=== PATIENT | male | born 1960 | race Caucasian/White ===

== ENCOUNTER 2017-06-04 18:37 | Inpatient (IN) | payer OTHER ==
[~2017-06-04] VITALS: Ht 180.3 cm; Wt 90.9 kg
[2017-06-04 18:45] VITALS: BP 151/88; PULSE 79; RESP 14; TEMP 98.9; O2SAT 94
[2017-06-04] MEDS ORDERED: SODIUM CHLOR 0.9% 1000 ML INJ 1,000 ML IV SCH (18:46)
[2017-06-04 18:50] VITALS: O2SAT 98
--- NOTE | 2017-06-04 18:58 | PD ---
HPI Chief Complaint: Altered mental status Time Seen by Provider: 18:46 Travel History International Travel<30 days: No Contact w/Intl Traveler<30days: No Traveled to known affect area: No History of Present Illness HPI The patient is a 56-year-old male who presents to the emergency department via EMS for altered mental status. The patient is currently from out of town, from [place], and most of the history is obtained from the . The states they came down on Wednesday for local dance competition. The patient was acting normal, however, has been complaining of some intermittent right eye twitching for the last 3 days. They went to a dance competition earlier today, the patient had one bourbon cocktail, when he called her and asked her to come downstairs because his eye was twitching. He then complained of dizziness and subsequently had some nausea and vomiting. She then drove the patient back to the hotel because she did not know where the emergency department was and called EMS. Upon arrival the patient is oriented to name, but did not know his age, date of , month, year, or eeler. The patient was unable to provide any pertinent information. 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 She is unsure if he takes any other medications but states he has no known drug allergies. EMS states the patient' s blood glucose was 117 when they arrived. [facility] Past Medical History Narrative Medical Dermatomyositis Past Surgical History Narrative Surgical Right leg biopsy, inguinal hernia surgery as a child per the 's report Social History Alcohol Use: Yes Tobacco Use: No Substance Use: No Allergies-Medications (Allergen,Severity, Reaction): Coded Allergies: No Known Allergies (Unverified , 06/04/17) Reported Meds & Prescriptions Reported Meds & Active Scripts Active Reported Folic Acid 0.4 Mg Tab 1 Mg PO DAILY Atorvastatin (Atorvastatin Calcium) 20 Mg Tab 20 Mg PO HS Lisinopril 5 Mg Tab 5 Mg PO DAILY Carvedilol 12.5 Mg Tab 12.5 Mg PO BID Methotrexate 2.5 Mg Tab 2.5 Mg PO Q7D Review of Systems ROS Limitations: Altered Mental Status, Poor Historian, Other: (History obtained from , patient is poor historian) Except as stated in HPI: all other systems reviewed are Neg HENT: Positive: Headaches, Vertigo Gastrointestinal: Positive: Nausea, Vomiting Skin: Positive Rash (Chronic rash per the 's report from his dermatomyositis) Neurologic: Positive: Dizziness, Change in Mentation Physical Exam Narrative GENERAL: Awake, alert, confused 56-year-old male who appears his stated age and is in no acute respiratory distress. SKIN: Blanching maculopapular rash on the legs, chest, and shoulders. HEAD: Atraumatic. Normocephalic. EYES: Pupils equal and round. 3 mm bilateral and reactive. ENT: No nasal bleeding or discharge. Mucous membranes pink and moist. NECK: Trachea midline. No JVD. No meningeal signs. Full range of motion with flexion extension of the neck as well as rotation. CARDIOVASCULAR: Regular rate and rhythm. No murmur appreciated. RESPIRATORY: No accessory muscle use. Clear to auscultation. Breath sounds equal bilaterally. GASTROINTESTINAL: Abdomen soft, non-tender, nondistended. No rebound tenderness. MUSCULOSKELETAL: No obvious deformities. No clubbing. No cyanosis. No edema. Well-healed scar over the medial aspect of the distal right thigh. NEUROLOGICAL: Awake and alert. No obvious cranial nerve deficits. Motor grossly within normal limits. Normal speech. Nonfocal, however, patient is only oriented to name and 's name. The patient does not know the current month, he year, president [facility], or current location. PSYCHIATRIC: Altered mental status, unable to assess. Data Data Last Documented VS Vital Signs Date Time Temp Pulse Resp B/P (MAP) Pulse Ox O2 Delivery O2 Flow Rate FiO2 06/04/17 19:26 73 16 145/78 (100) 98 Room Air 06/04/17 18:50 2.00 06/04/17 18:45 98.9 Orders Orders Electrocardiogram (06/04/17 18:46) Ammonia (06/04/17 18:46) Complete Blood Count With Diff (06/04/17 18:46) Comprehensive Metabolic Panel (06/04/17 18:46) Creatine Kinase (Cpk) (06/04/17 18:46) Prothrombin Time / Inr (Pt) (06/04/17 18:46) Act Partial Throm Time (Ptt) (06/04/17 18:46) Troponin I (06/04/17 18:46) Thyroid Stimulating Hormone (06/04/17 18:46) Urinalysis - C+S If Indicated (06/04/17 18:46) Blood Culture (06/04/17 18:46) Chest, Single Ap (06/04/17 18:46) Ct Brain W/O Iv Contrast(Rout) (06/04/17 18:46) Blood Glucose (06/04/17 18:46) Ecg Monitoring (06/04/17 18:46) Iv Access Insert/Monitor (06/04/17 18:46) Oximetry (06/04/17 18:46) Sodium Chloride 0.9% Flush (Ns Flush) (06/04/17 19:00) Sodium Chlor 0.9% 1000 Ml Inj (Ns 1000 M (06/04/17 18:46) Drug Screen, Random Urine (06/04/17 18:46) Alcohol (Ethanol) (06/04/17 18:46) Lactic Acid (06/04/17 18:46) Ondansetron Inj (Zofran Inj) (06/04/17 19:30) Dexamethasone Inj (Decadron Inj) (06/04/17 19:30) Mri Brain W&W/O Contrast (06/04/17 ) Levetiracetam Inj (Keppra Inj) (06/04/17 19:45) Levetiracetam Inj (Keppra Inj) (06/04/17 19:45) Consult Neurosurgery (06/04/17 ) Admit Order (Ed Use Only) (06/04/17 19:59) Labs Laboratory Tests Test 06/04/17 18:45 White Blood Count 7.2 TH/MM3 Red Blood Count 4.64 MIL/MM3 Hemoglobin 14.0 GM/DL Hematocrit 43.3 % Mean Corpuscular Volume 93.3 FL Mean Corpuscular Hemoglobin 30.3 PG Mean Corpuscular Hemoglobin Concent 32.4 % Red Cell Distribution Width 12.8 % Platelet Count 196 TH/MM3 Mean Platelet Volume 8.6 FL Neutrophils (%) (Auto) 73.1 % Lymphocytes (%) (Auto) 11.0 % Monocytes (%) (Auto) 7.2 % Eosinophils (%) (Auto) 8.2 % Basophils (%) (Auto) 0.5 % Neutrophils # (Auto) 5.3 TH/MM3 Lymphocytes # (Auto) 0.8 TH/MM3 Monocytes # (Auto) 0.5 TH/MM3 Eosinophils # (Auto) 0.6 TH/MM3 Basophils # (Auto) 0.0 TH/MM3 CBC Comment DIFF FINAL Differential Comment Prothrombin Time 10.7 SEC Prothromb Time International Ratio 1.1 RATIO Activated Partial Thromboplast Time 25.4 SEC Blood Urea Nitrogen 19 MG/DL Creatinine 0.70 MG/DL Random Glucose 125 MG/DL Total Protein 7.1 GM/DL Albumin 3.8 GM/DL Calcium Level 7.9 MG/DL Alkaline Phosphatase 80 U/L Aspartate Amino Transf (AST/SGOT) 37 U/L Alanine Aminotransferase (ALT/SGPT) 53 U/L Total Bilirubin 0.6 MG/DL Sodium Level 138 MEQ/L Potassium Level 3.9 MEQ/L Chloride Level 103 MEQ/L Carbon Dioxide Level 28.3 MEQ/L Anion Gap 7 MEQ/L Estimat Glomerular Filtration Rate 118 ML/MIN Lactic Acid Level 0.6 mmol/L Ammonia 24 MCMOL/L Total Creatine Kinase 165 U/L Troponin I LESS THAN 0.02 NG/ML Thyroid Stimulating Hormone 3rd Gen 5.160 uIU/ML Ethyl Alcohol Level LESS THAN 3 MG/DL MDM Medical Decision Making Medical Screen Exam Complete: Yes Emergency Medical Condition: Yes Medical Record Reviewed: Yes Interpretation(s) EKG reveals normal sinus rhythm with a rate of 71. Inverted T-wave in lead III. Laboratory Tests Test 06/04/17 18:45 White Blood Count 7.2 TH/MM3 Red Blood Count 4.64 MIL/MM3 Hemoglobin 14.0 GM/DL Hematocrit 43.3 % Mean Corpuscular Volume 93.3 FL Mean Corpuscular Hemoglobin 30.3 PG Mean Corpuscular Hemoglobin Concent 32.4 % Red Cell Distribution Width 12.8 % Platelet Count 196 TH/MM3 Mean Platelet Volume 8.6 FL Neutrophils (%) (Auto) 73.1 % Lymphocytes (%) (Auto) 11.0 % Monocytes (%) (Auto) 7.2 % Eosinophils (%) (Auto) 8.2 % Basophils (%) (Auto) 0.5 % Neutrophils # (Auto) 5.3 TH/MM3 Lymphocytes # (Auto) 0.8 TH/MM3 Monocytes # (Auto) 0.5 TH/MM3 Eosinophils # (Auto) 0.6 TH/MM3 Basophils # (Auto) 0.0 TH/MM3 CBC Comment DIFF FINAL Differential Comment Prothrombin Time 10.7 SEC Prothromb Time International Ratio 1.1 RATIO Activated Partial Thromboplast Time 25.4 SEC Blood Urea Nitrogen 19 MG/DL Creatinine 0.70 MG/DL Random Glucose 125 MG/DL Total Protein 7.1 GM/DL Albumin 3.8 GM/DL Calcium Level 7.9 MG/DL Alkaline Phosphatase 80 U/L Aspartate Amino Transf (AST/SGOT) 37 U/L Alanine Aminotransferase (ALT/SGPT) 53 U/L Total Bilirubin 0.6 MG/DL Sodium Level 138 MEQ/L Potassium Level 3.9 MEQ/L Chloride Level 103 MEQ/L Carbon Dioxide Level 28.3 MEQ/L Anion Gap 7 MEQ/L Estimat Glomerular Filtration Rate 118 ML/MIN Lactic Acid Level 0.6 mmol/L Ammonia 24 MCMOL/L Total Creatine Kinase 165 U/L Troponin I LESS THAN 0.02 NG/ML Thyroid Stimulating Hormone 3rd Gen 5.160 uIU/ML Ethyl Alcohol Level LESS THAN 3 MG/DL Last Impressions Head CT 06/04/171845 Signed Impressions: Service Date/Time: Sunday, June 04, 2017 19:05 - CONCLUSION: MD Chest X-Ray 06/04/171845 Signed Impressions: Service Date/Time: Sunday, June 04, 2017 18:52 - CONCLUSION: No acute disease. 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 MRI perfusion could be used to exclude avascular insult. Nestor Staton MD FACR Differential Diagnosis Differential diagnosis includes delirium, intracranial tumor, intracranial hemorrhage, subarachnoid hemorrhage, meningitis, encephalitis, substance ingestion, alcohol intoxication, hyponatremia, heatstroke, CVA, TIA, transient global amnesia. Narrative Course IV was established, labs are drawn and sent, and the patient was placed on cardiac telemetry monitoring and continuous pulse oximetry monitoring. EKG was ordered and interpreted. Stat CT the brain was obtained. Ammonia level and lactic acid were sent to lab. Patient has no meningeal signs and was afebrile, I doubt meningitis, could be viral or aseptic encephalitis versus delirium versus intracranial hemorrhage/tumor. Patient may also have metabolic encephalopathy. The patient's does note he takes methotrexate, does not know his other medications. Unsure if the patient takes any anticoagulants. The was able to get us a list eventually the medications, the patient is not on any anticoagulants. CT of the head revealed vasogenic edema in the left occipital region with minimal localized mass-effect, considerations would include neoplastic process as well as subacute infarct. The right hemisphere is unremarkable. I discussed personally the findings with the radiologist, Dr. Staton, who recommends MRI with and without contrast, findings are suspicious for neoplastic process in the left occipital region. A call was placed to the on-call neurosurgeon, Dr. Mccarty, at 7:30 PM. The patient was administered Decadron 8 mg intravenously. I discussed the CT findings with the and patient at bedside and the need for MRI and admission. The family is comfortable with this plan of care and disposition. Dr. Mccarty agrees with Decadron now within Decadron 4 mg every 6 hours and Keppra 1 g loading dose with 500 mg every 12 hours. The patient will be transferred to [facility]. The on-call medical service was paged for admission. I discussed the patient with the on-call medical team who agrees with admission. MRI will be performed and the patient will be transferred to [facility] for definitive care. Physician Communication [facility] 7:35 PM for admission. I discussed the patient with Dr. Paul who agrees with admission. Diagnosis Primary Impression: Altered mental status Qualified Codes: R41.0 - Disorientation, unspecified Additional Impression: Occipital mass Admitting Information Admitting Physician Requests: Admit Condition: Stable Henry Pereira MD Jun 04, 2017 18:58
[2017-06-04] MEDS ORDERED: FOLI400T PO (19:00)
[2017-06-04] MEDS ORDERED: LISI-519 PO (19:00)
[2017-06-04] MEDS ORDERED: CARV12.52 PO (19:00)
[2017-06-04] MEDS ORDERED: METH2.5T PO (19:00)
[2017-06-04] MEDS ORDERED: ATOR20TA15 PO (19:00)
[2017-06-04] MEDS ORDERED: SODIUM CHLORIDE 0.9% FLUSH 10 ML FLUSH IV FLUSH PRN ×2 (19:00→20:00)
[2017-06-04 19:06] LABS: AUTOMATED NEUTROPHIL # 5.3 TH/MM3 (1.8-7.7); BASOPHIL % 0.5 % (0.0-2.0); EOSINOPHIL # 0.6 TH/MM3 (0-0.4); EOSINOPHIL % 8.2 % (0.0-4.0); HEMATOCRIT 43.3 % (39.0-51.0); LYMPHOCYTE # 0.8 TH/MM3 (1.0-4.8); MEAN CELL VOLUME 93.3 FL (80.0-100.0); MEAN CORPUSCULAR HEMOGLOBIN 30.3 PG (27.0-34.0); MEAN CORPUSCULAR HGB CONC 32.4 % (32.0-36.0); MEAN PLATELET VOLUME 8.6 FL (7.0-11.0); MONO % 7.2 % (0.0-8.0); MONOCYTE # 0.5 TH/MM3 (0-0.9); NEUT % 73.1 % (16.0-70.0); PLATELET COUNT 196 TH/MM3 (150-450); RED BLOOD COUNT 4.64 MIL/MM3 (4.50-5.90); RED CELL DISTRIBUTION WIDTH 12.8 % (11.6-17.2); WHITE BLOOD COUNT 7.2 TH/MM3 (4.0-11.0)
[2017-06-04 19:11] LABS: CHLORIDE 103 MEQ/L (98-107); SODIUM (NA) 138 MEQ/L (136-145)
[2017-06-04 19:16] LABS: CALCIUM 7.9 MG/DL (8.5-10.1); INTERNATIONAL NORMALIZED RATIO 1.1 RATIO; PROTHROMBIN TIME - PATIENT 10.7 SEC (9.8-11.6)
[2017-06-04 19:17] LABS: ALBUMIN 3.8 GM/DL (3.4-5.0); BICARBONATE 28.3 MEQ/L (21.0-32.0); BLOOD UREA NITROGEN 19 MG/DL (7-18); GLUCOSE,RANDOM 125 MG/DL (74-106)
--- NOTE | 2017-06-04 19:19 | RADRPT ---
EXAM DATE/TIME: 06/04/2017 18:52 [facility] COMPARISON: No previous studies available for comparison. INDICATIONS : Syncope, nausea, vomiting. MEDICAL HISTORY : Hypertension. SURGICAL HISTORY : None. ENCOUNTER: Initial ACUITY: 1 day PAIN SCORE: 0/10 LOCATION: Bilateral chest FINDINGS: A single view of the chest demonstrates the lungs to be symmetrically aerated without evidence of mas s, infiltrate or effusion. The cardiomediastinal contours are unremarkable. Osseous structures are intact. CONCLUSION: No acute disease. Nestor Staton MD FACR on June 04, 2017 at 19:16 Board Certified Radiologist. This report was verified electronically.
[2017-06-04 19:20] LABS: ALT (GPT) 53 U/L (12-78); AST (GOT) 37 U/L (15-37); GLOMERULAR FILTRATION RATE 118 ML/MIN (>89)
[2017-06-04 19:22] LABS: TOTAL BILIRUBIN ADULT 0.6 MG/DL (0.2-1.0); TOTAL PROTEIN 7.1 GM/DL (6.4-8.2)
[2017-06-04 19:23] LABS: ALKALINE PHOSPHATASE 80 U/L (45-117)
[2017-06-04 19:25] LABS: TROPONIN I LESS THAN 0.02 NG/ML (0.02-0.05)
[2017-06-04 19:26] VITALS: BP 145/78; PULSE 73; RESP 16; O2SAT 98
[2017-06-04] MEDS ORDERED: DEXAMETHASONE SOD PHOS 4 MG/ML VIAL IV PUSH ONE (19:30)
[2017-06-04] MEDS ORDERED: ONDANSETRON HCL 4 MG/2 ML VIAL IV PUSH ONE (19:30)
--- NOTE | 2017-06-04 19:32 | RADRPT ---
EXAM DATE/TIME: 06/04/2017 19:05 [facility] COMPARISON: CHEST SINGLE AP, June 04, 2017, 18:52. INDICATIONS : Altered mental status. Worsening headaches last few days. RADIATION DOSE: 59.78 CTDIvol (mGy) MEDICAL HISTORY : None SURGICAL HISTORY : None. ENCOUNTER: Initial ACUITY: 1 day PAIN SCALE: 10/10 LOCATION: cranial TECHNIQUE: Multiple contiguous axial images were obtained of the head. Using automated exposure control and adj ustment of the mA and/or kV according to patient size, radiation dose was kept as low as reasonably a chievable to obtain optimal diagnostic quality images. DICOM format image data is available electro nically for review and comparison. FINDINGS: There is vasogenic edema in the left occipital region with minimal localized mass effect. Considerat ions would include neoplastic process as well as to subacute infarct. The right hemisphere is unrema rkable. Ventricle size is appropriate. Posterior fossa appears normal. CONCLUSION : : Findings suspicious for neoplastic process left occipital region. Ischemic event is thought to be le ss likely because the cortex is spared. Nestor Staton MD FACR on June 04, 2017 at 19:25 Board Certified Radiologist. This report was verified electronically.
[2017-06-04] MEDS ORDERED: levETIRAcetam INJ 100 ML IV ONE (19:45)
[2017-06-04] MEDS ORDERED: levETIRAcetam INJ 500 MG in SODIUM CHLORIDE 0.9% INJ 100 ML IV ONE (19:45)
[2017-06-04] MEDS ORDERED: ACETAMINOPHEN/HYDROcodone 325 MG/5 MG TAB PO PRN (20:00)
[2017-06-04] MEDS ORDERED: ONDANSETRON HCL 4 MG/2 ML VIAL IVP PRN (20:00)
[2017-06-04] MEDS ORDERED: SENNOSIDES 8.6 MG TAB PO PRN (20:00)
[2017-06-04] MEDS ORDERED: MAGNESIUM HYDROXIDE SUSP 30 ML CUP PO PRN (20:00)
[2017-06-04] MEDS ORDERED: LACTULOSE SYRUP 20 GM/30 ML CUP PO PRN (20:00)
[2017-06-04] MEDS ORDERED: BISACODYL 10 MG SUPP RECTAL PRN (20:00)
[2017-06-04] MEDS ORDERED: MORPHINE SULFATE 2 MG/ML SYRINGE IV PUSH PRN (20:00)
[2017-06-04] MEDS ORDERED: ACETAMINOPHEN 325 MG TAB PO PRN (20:00)
[2017-06-04] MEDS: SODIUM CHLOR 0.9% 1000 ML INJ 1,000 ML IV SCH (20:23)
[2017-06-04] MEDS ORDERED: GADODIAMIDE PF 287 MG/ML 20 ML VIAL (for RAD MRI) IVCONTRAST ONE (21:01)
[2017-06-04 21:20] VITALS: BP 148/82; PULSE 93; RESP 18; O2SAT 97
[2017-06-04 21:27] LABS: BILIRUBIN, URINE NEG (NEG); BLOOD, URINE NEG (NEG); GLUCOSE,URINE NEG (NEG); KETONE, URINE TRACE mg/dL (NEG); NITRITE,URINE NEG (NEG); URINE COLOR YELLOW (YELLW/STRAW); URINE LEUKOCYTE ESTERASE NEG (NEG)
--- NOTE | 2017-06-04 21:27 | RADRPT ---
EXAM DATE/TIME: 06/04/2017 20:59 [facility] COMPARISON: No previous studies available for comparison. INDICATIONS : Mass. CONTRAST: 18 cc Omniscan (gadodiamide) IV MEDICAL HISTORY : Hypertension. SURGICAL HISTORY : Inguinal hernia repair. ENCOUNTER: Initial ACUITY: 1 day PAIN SCORE: 0/10 LOCATION: cranial TECHNIQUE: Multiplanar, multisequence MRI of the brain was performed both prior to and following the administration of paramagnetic contrast. FINDINGS: MRI confirms 2 enhancing masses in the left occipital region still suspicious for neoplastic process. Moderate edema is evident. Subacute infarction would be a more remote consideration. Inflammatory process is thought less likel y as well. There is an third area of edema in the right posterior sylvian region without enhancement. Ventricular size is appropriate. Posterior fossa is unremarkable On the gradient echo images minimal hemosiderin deposition is evident. Minimal restricted diffusion is evident within the center of this. CONCLUSION: Findings left occipital region most likely neoplastic with an atypical appearance fo r both an inflammatory process or vascular insult. MRI perfusion could be used to exclude avascular insult. Nestor Staton MD FACR on June 04, 2017 at 21:16 Board Certified Radiologist. This report was verified electronically.
[2017-06-04 21:36] LABS: MUCUS URINE MOD /lpf (OCC)
[2017-06-04] MEDS: SODIUM CHLORIDE 0.9% FLUSH 10 ML FLUSH IV FLUSH SCH (21:36)
[2017-06-04 21:38] LABS: SQUAMOUS EPITHELIAL CELL URINE 0-5 /hpf (0-5); WBC, URINE 0-2 /hpf (0-5)
[2017-06-04 21:41] LABS: BACTERIA, URINE RARE /hpf
[2017-06-04] MEDS: DOCUSATE SODIUM 50 MG/SENNA 8.6 MG TAB PO SCH (21:45)
[2017-06-05] VITALS (9 sets, daily range): BP systolic 119–139; BP diastolic 61–71; PULSE 75–95; RESP 17–20; TEMP 97.6–99; O2SAT 94–97
[2017-06-05] MEDS: DEXAMETHASONE SOD PHOS 4 MG/ML VIAL IV PUSH SCH ×2 (02:15→08:47)
--- NOTE | 2017-06-05 03:10 | HHI.HP ---
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 Meza is a 56-year-old male with a history of dermatomyositis who presented to the [facility] emergency room for evaluation of altered mental status. The patient is from [place] and came down for 06/18/2017 to see his daughter (a college student at [employer]) in a local dance competition. He was found to have a left occipital brain mass on imaging and was transferred to [facility] for neurosurgical evaluation. The patient is seen in his hospital room. He states that he has been having some mild dizziness for the past couple of years and has been evaluated by his primary care physician in [place] for this. He says while he was at the dance competition 06/03/17, he started to have some confusion that he describes as "fogginess" along with dizziness and imbalance. He states his had to help him ambulate due to imbalance. He also was having a visual field disturbance in the periphery of his right eye -an area of black and also some vibrating of what he was able to see. He reports nausea with vomiting following his return back to the hotel. He currently states that he is feeling less confused though still a little "foggy". He reports he has been having headaches in the frontal area bilaterally that he describes as dull and a 2 out of 10 currently. He is able to provide a good medical history that is consistent with the medications he is taking and with the history we received from his . He denies any recent fever, chills, nausea, vomiting, chest pain , shortness of breath. Review of Systems Except as stated in HPI: all other systems reviewed are Neg Past Family Social History Past Medical History Dermatomyositis Hypertension Hyperlipidemia Asthma- last exacerbation during childhood Mild cardiomyopathy Denies diabetes mellitus, atrial fibrillation, COPD, coronary artery disease, kidney disease, liver disease, DVT, PE, CVA, seizures, thyroid disease, or cancer . Past Surgical History Right leg biopsy Inguinal hernia surgery as a child . Reported Medications Reported Meds & Active Scripts Active Reported Folic Acid 0.4 Mg Tab 1 Mg PO DAILY Atorvastatin (Atorvastatin Calcium) 20 Mg Tab 20 Mg PO HS Lisinopril 5 Mg Tab 5 Mg PO DAILY Carvedilol 12.5 Mg Tab 12.5 Mg PO BID Methotrexate 2.5 Mg Tab 2.5 Mg PO Q7D . Allergies: Coded Allergies: No Known Allergies (Unverified , 06/04/17) Family History Mother with [place]'s granulomatosis; cancer of uncertain etiology Father with asthma . Social History Tobacco: Never smoked Alcohol: Social use: 2-3 drinks occasionally Illicit Drugs: denies . Physical Exam Vital Signs Vital Signs Date Time Temp Pulse Resp B/P (MAP) Pulse Ox O2 Delivery O2 Flow Rate FiO2 06/04/17 23:20 06/04/17 21:49 94 96 Nasal Cannula 2.00 06/04/17 21:20 93 18 148/82 (104) 97 2.00 06/04/17 19:26 73 16 145/78 (100) 98 Room Air 06/04/17 18:50 98 Nasal Cannula 2.00 06/04/17 18:45 98.9 79 14 151/88 (109) 94 Physical Exam CONSTITUTIONAL: This is a very pleasant, well-nourished, well-developed patient , in no apparent distress. INTEGUMENTARY: No rashes, ecchymoses or lesions. Cool and dry. HEAD: Atraumatic. Normocephalic. EYES: No scleral icterus. No injection or drainage. ENT: Nose without bleeding, purulent drainage. NECK: Trachea midline. No JVD or lymphadenopathy. CARDIOVASCULAR: Regular rate and rhythm without murmurs, gallops, or rubs. RESPIRATORY: Clear to auscultation. Breath sounds equal bilaterally. No wheezes , rales, or rhonchi. GASTROINTESTINAL: Abdomen soft, non-tender, nondistended. No guarding. MUSCULOSKELETAL: Extremities without clubbing, cyanosis, or edema. No calf tenderness. NEUROLOGICAL: Awake and alert x 3; able to tell me his home medications also. Motor and sensory grossly within normal limits. Normal speech. Extraocular movements intact. Pupils equal round and reactive to light. . Laboratory Laboratory Tests Test 06/04/17 18:45 06/04/17 21:20 White Blood Count 7.2 Red Blood Count 4.64 Hemoglobin 14.0 Hematocrit 43.3 Mean Corpuscular Volume 93.3 Mean Corpuscular Hemoglobin 30.3 Mean Corpuscular Hemoglobin Concent 32.4 Red Cell Distribution Width 12.8 Platelet Count 196 Mean Platelet Volume 8.6 Neutrophils (%) (Auto) 73.1 Lymphocytes (%) (Auto) 11.0 Monocytes (%) (Auto) 7.2 Eosinophils (%) (Auto) 8.2 Basophils (%) (Auto) 0.5 Neutrophils # (Auto) 5.3 Lymphocytes # (Auto) 0.8 Monocytes # (Auto) 0.5 Eosinophils # (Auto) 0.6 Basophils # (Auto) 0.0 CBC Comment DIFF FINAL Differential Comment Prothrombin Time 10.7 Prothromb Time International Ratio 1.1 Activated Partial Thromboplast Time 25.4 Blood Urea Nitrogen 19 Creatinine 0.70 Random Glucose 125 Total Protein 7.1 Albumin 3.8 Calcium Level 7.9 Alkaline Phosphatase 80 Aspartate Amino Transf (AST/SGOT) 37 Alanine Aminotransferase (ALT/SGPT) 53 Total Bilirubin 0.6 Sodium Level 138 Potassium Level 3.9 Chloride Level 103 Carbon Dioxide Level 28.3 Anion Gap 7 Estimat Glomerular Filtration Rate 118 Lactic Acid Level 0.6 Ammonia 24 Total Creatine Kinase 165 Troponin I LESS THAN 0.02 Thyroid Stimulating Hormone 3rd Gen 5.160 Ethyl Alcohol Level LESS THAN 3 Urine Collection Type CLEAN CATCH Urine Color YELLOW Urine Turbidity CLEAR Urine pH 5.0 Urine Specific [place] GREATER/EQUAL 1.030 Urine Protein NEG Urine Glucose (UA) NEG Urine Ketones TRACE Urine Occult Blood NEG Urine Nitrite NEG Urine Bilirubin NEG Urine Urobilinogen 0.2 Urine Leukocyte Esterase NEG Urine WBC 0-2 Urine Squamous Epithelial Cells 0-5 Urine Bacteria RARE Urine Mucus MOD Microscopic Urinalysis Comment CULT NOT INDICATED Urine Opiates Screen NEG Urine Barbiturates Screen NEG Urine Amphetamines Screen NEG Urine Benzodiazepines Screen NEG Urine Cocaine Screen NEG Urine Cannabinoids Screen NEG Date/Time Source Procedure Growth Status 06/04/17 19:00 Blood Peripheral Aerobic Blood Culture Pending Received 06/04/17 19:00 Blood Peripheral Anaerobic Blood Culture Pending Received Result Diagram: 06/04/17184406/04/17 184 Imaging Last Impressions Head CT 06/04/171845 Signed Impressions: Service Date/Time: Sunday, June 04, 2017 19:05 - CONCLUSION: Chest X-Ray 06/04/171845 Signed Impressions: Service Date/Time: Sunday, June 04, 2017 18:52 - CONCLUSION: No acute disease. 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 MRI perfusion could be used to exclude avascular insult. Nestor Staton MD FACR . Caprini VTE Risk Assessment Caprini VTE Risk Assessment: Mod/High Risk (score >= 2) Caprini Risk Assessment Model Point Value = 1 Point Value = 2 Point Value = 3 Point Value = 5 Age 41-60 Minor surgery BMI > 25 kg/m2 Swollen legs Varicose veins or History of unexplained or recurrent spontaneous Oral contraceptives or hormone replacement Sepsis (< 1 month) Serious lung disease, including pneumonia (< 1 month) Abnormal pulmonary function Acute myocardial infarction Congestive heart failure (< 1 month) History of inflammatory bowel disease Medical patient at bed rest Age 61-74 Arthroscopic surgery Major open surgery (> 45 min) Laparoscopic surgery (> 45 min) Malignancy Confined to bed (> 72 hours) Immobilizing plaster cast Central venous access Age >= 75 History of VTE Family history of VTE Factor V Leiden Prothrombin [id number] Lupus anticoagulant Anticardiolipin antibodies Elevated serum homocysteine Heparin-induced thrombocytopenia Other congenital or acquired thrombophilia Stroke (< 1 month) Elective arthroplasty Hip, pelvis, or leg fracture Acute spinal cord injury (< 1 month) Prophylaxis Regimen Total Risk Factor Score Risk Level Prophylaxis Regimen 0-1 Low Early ambulation 2 Moderate Order ONE of the following: *Sequential Compression Device (SCD) *Heparin 5000 units SQ BID 3-4 Higher Order ONE of the following medications: *Heparin 5000 units SQ TID *Enoxaparin/Lovenox 40 mg SQ daily (WT < 150 kg, CrCl > 30 mL/min) *Enoxaparin/Lovenox 30 mg SQ daily (WT < 150 kg, CrCl > 10-29 mL/min) *Enoxaparin/Lovenox 30 mg SQ BID (WT < 150 kg, CrCl > 30 mL/min) AND/OR *Sequential Compression Device (SCD) 5 or more Highest Order ONE of the following medications: *Heparin 5000 units SQ TID (Preferred with Epidurals) *Enoxaparin/Lovenox 40 mg SQ daily (WT < 150 kg, CrCl > 30 mL/min) *Enoxaparin/Lovenox 30 mg SQ daily (WT < 150 kg, CrCl > 10-29 mL/min) *Enoxaparin/Lovenox 30 mg SQ BID (WT < 150 kg, CrCl > 30 mL/min) AND *Sequential Compression Device (SCD) Assessment and Plan Problem List: (1) Altered mental status ICD Code: R41.82 - Altered mental status, unspecified Status: Acute (2) Occipital mass ICD Code: R22.0 - Localized swelling, mass and lump, head Status: Acute Assessment and Plan Mr. Meza is a 56-year-old male with a history of dermatomyositis who presented to the [facility] emergency room for evaluation of altered mental status. The patient is from [place] and came down for 06/18/2017 to see his daughter (a college student at [employer]) in a local dance competition. He was found to have a left occipital brain mass on imaging and was transferred to [facility] for neurosurgical evaluation. Left occipital brain mass AMS -CT of head showed vasogenic edema in left occipital region with minimal localized mass-effect -Brain MRI with findings of 2 enhancing masses in the left occipital region suspicious for neoplastic process with an atypical appearance for both inflammatory process or vascular insult. -Consult neurosurgery - ER physician discussed the case with Dr. Mccarty -Decadron 8 mg IV was administered in the ER -Decadron 4 mg every 6 hours to reduce inflammation -Keppra 500 mg IV every 12 hours to prevent seizures -Analgesia: Acetaminophen, [place] 07/01/2024, or morphine IV depending on pain severity Hypertension -Continue home carvedilol and lisinopril Hyperlipidemia -Continue home atorvastatin Dermatomyositis -Continue methotrexate 2.5 mg 6 tablets every week -takes on Tuesdays -I have asked nursing to confirm his methotrexate dosing prior to administering the first dose given the discrepancy between what the patient tells me he takes and what the med reconciliation shows DVT prophylaxis -TEDs/SCDs Discussed Condition With Dr. Paul, charge machine operator, and patient . Physician Certification 2 Midnight Certification Type: Admission for Inpatient Services Order for Inpatient Services The services are ordered in accordance with Medicare regulations or non- Medicare payer requirements, as applicable. In the case of services not specified as inpatient-only, they are appropriately provided as inpatient services in accordance with the 2-midnight benchmark. Estimated LOS (days): 5 days is the estimated time the patient will need to remain in the hospital, assuming treatment plan goals are met and no additional complications. Post-Hospital Plan: Not yet determined Problem Qualifiers (1) Altered mental status: Qualified Codes: R41.0 - Disorientation, unspecified Kelsey Fuller Jun 05, 2017 03:10
[2017-06-05] MEDS: SODIUM CHLOR 0.9% 1000 ML INJ 1,000 ML IV SCH (05:55)
[2017-06-05 06:17] LABS: AUTOMATED NEUTROPHIL # 3.5 TH/MM3 (1.8-7.7); BASOPHIL % 0.2 % (0.0-2.0); EOSINOPHIL % 0.1 % (0.0-4.0); HEMATOCRIT 39.9 % (39.0-51.0); LYMPH % 14.5 % (9.0-44.0); LYMPHOCYTE # 0.6 TH/MM3 (1.0-4.8); MEAN CELL VOLUME 90.6 FL (80.0-100.0); MEAN CORPUSCULAR HEMOGLOBIN 31.8 PG (27.0-34.0); MEAN CORPUSCULAR HGB CONC 35.1 % (32.0-36.0); MEAN PLATELET VOLUME 8.4 FL (7.0-11.0); MONO % 2.2 % (0.0-8.0); MONOCYTE # 0.1 TH/MM3 (0-0.9); PLATELET COUNT 212 TH/MM3 (150-450); RED BLOOD COUNT 4.41 MIL/MM3 (4.50-5.90); RED CELL DISTRIBUTION WIDTH 13.2 % (11.6-17.2); WHITE BLOOD COUNT 4.3 TH/MM3 (4.0-11.0)
[2017-06-05 06:38] LABS: ALBUMIN 3.5 GM/DL (3.4-5.0); AST (GOT) 32 U/L (15-37); BICARBONATE 24.1 MEQ/L (21.0-32.0); BLOOD UREA NITROGEN 14 MG/DL (7-18); CALCIUM 8.1 MG/DL (8.5-10.1); CHLORIDE 106 MEQ/L (98-107); GLOMERULAR FILTRATION RATE 118 ML/MIN (>89); GLUCOSE,RANDOM 144 MG/DL (74-106); SODIUM (NA) 139 MEQ/L (136-145)
[2017-06-05 06:40] LABS: ALT (GPT) 49 U/L (12-78)
[2017-06-05 06:43] LABS: ALKALINE PHOSPHATASE 68 U/L (45-117); FREE T4 0.83 NG/DL (0.76-1.46); TOTAL BILIRUBIN ADULT 0.6 MG/DL (0.2-1.0); TOTAL PROTEIN 6.6 GM/DL (6.4-8.2)
[2017-06-05] MEDS: DOCUSATE SODIUM 50 MG/SENNA 8.6 MG TAB PO SCH ×2 (08:45→19:43)
[2017-06-05] MEDS: CARVEDILOL 12.5 MG TAB PO SCH ×2 (08:46→19:44)
[2017-06-05] MEDS: LISINOPRIL 5 MG TAB PO SCH (08:46)
[2017-06-05] MEDS: FOLIC ACID 1 MG TAB PO SCH (08:46)
[2017-06-05] MEDS: SODIUM CHLORIDE 0.9% FLUSH 10 ML FLUSH IV FLUSH SCH ×2 (08:47→19:44)
[2017-06-05] MEDS ORDERED: levETIRAcetam INJ 500 MG in SODIUM CHLORIDE 0.9% INJ 100 ML IV SCH (09:00)
[2017-06-05] MEDS: PANTOPRAZOLE SOD 40 MG DELAYED RELEASE TAB PO SCH (12:37)
[2017-06-05] MEDS ORDERED: DIATRIZOATE MEGLUM/DIATRIZOATE SOD 9 ML CUP PO ONE (13:15)
--- NOTE | 2017-06-05 13:56 | MB ---
cc: Troy Mccarty MD DATE: 06/05/2017 REASON FOR CONSULTATION: Left occipital lobe mass. HISTORY OF PRESENT ILLNESS: This is a 56-year-old right-handed, gentleman who was transferred to [facility] facility after presenting to the [facility] emergency room last evening with complaints of worsening dizziness along with a headache and essentially twitching in the right eye with some spots in the right side of his vision, which he has had intermittently for the past 3 days. The patient is here visiting from [place] since his daughter is in the cheer[employer] competition accompanied by his and is scheduled to fly back in 2 days. He has a chronic history of headaches which have been more pronounced. Yesterday, he also had nausea and vomiting. He has complained of dizziness over the past several days, but denies any other focal or uncontrollable seizure activity in the arms or legs or any loss of consciousness. The CT scan of the head obtained in the emergency room revealed a left occipital lobe vasogenic edema with mass effect and subsequent MRI scan of the brain has also been obtained, which reveals about a left occipital lobe enhancing mass with necrotic centers and several projections from this mass and possibly even 2 contiguous masses adjacent to each other. The total size of this is close to 3 cm. There is some surrounding vasogenic edema associated with this. The patient relates that ever since he was started on the Decadron and the Keppra last evening, his symptoms have improved. is at the bedside and relates that he was also having some confused conversation and he states that he was able to understand what she was saying, but not to express in a comprehensive way and respond to her questions, but this is also improving. PAST MEDICAL HISTORY: Dermatomyositis, hypertension, hyperlipidemia, asthma as a child, cardiac arrhythmia, bilateral inguinal hernia repair, right quadriceps area muscle biopsy for the dermatomyositis. MEDICATIONS: 1. Methotrexate 2.5 mg every 7 days. 2. Carvedilol 12.5 mg b.i.d. 3. Lisinopril 5 mg daily. 4. Atorvastatin 20 mg at bedtime. 5. Folic acid 0.4 mg daily. ALLERGIES: NO KNOWN DRUG ALLERGIES. SOCIAL HISTORY: He denies any cigarette smoking and drinks alcohol on a social basis. No illicit drug use. He is and is here with and daughter who is in a cheer[employer] competition. They are from [place]. FAMILY HISTORY: Father had a brain cyst drained, but no cancer and also had asthma. Mother has [place] granulomatosis. It is unclear whether she had a cancer or history of any tumors. REVIEW OF SYSTEMS: Positive for chronic headaches with exacerbation for the last 3 days. Dizziness which is also prominent in the last 3 days, although denies any vertigo. No incontinence. Right eye twitching for the past 3 days, which is intermittent. Visual spots in the right eye, which were pronounced yesterday, but her has had for several days. Denies any weakness or numbness in the upper or lower extremities. No chest pain or shortness of breath. No abdominal pain. He had nausea and vomiting last night, which has essentially resolved at this point. He had difficulty with his speech and comprehension, which is also improving. No fevers or chills. No recent weight gain or weight loss. No history of easy bleeding or bruising. Otherwise, review of systems is negative. LABORATORY STUDIES: White blood cell count 4.3, hemoglobin 14, platelet count 212. PT 10.7, INR 1.1, PTT 25.4. Sodium 139, potassium 3.9, BUN 14, creatinine 0.7, glucose 144. Toxicology screen is negative. PHYSICAL EXAMINATION: VITAL SIGNS: Temperature 98.2, pulse is 79, respiratory rate 18, blood pressure 133/63, oxygen saturation 94% on room air. HEAD: No Battles or raccoon sign. Normocephalic, atraumatic. NECK: Supple with no lymphadenopathy guarding or rigidity. Trachea midline. EENT: No drainage from the nose or ears. The mucous members are moist and pink. LUNGS: Chest is clear to auscultation bilaterally. HEART: Regular rate and rhythm. Normal S1, S2. ABDOMEN: Soft, nontender. No hepatosplenomegaly. EXTREMITIES: No cyanosis, edema or deformity. SKIN: I do not notice any new rash or skin breakdown or pustules. NEUROLOGIC: He is awake, alert. He is oriented x 3. Pupils are equal and reactive. Extraocular muscles are intact. He has a right inferior quadrant visual field defect, difficulty with count fingers in the right superior visual field quadrant. Face is symmetric. Tongue is midline. He moves all 4 extremities with good strength. Negative Babinski. Light touch sensation is intact. Speech is fluent. IMPRESSION: 1. 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 The differential diagnosis obviously includes a neoplasm, either a primary brain mass or metastasis. Other possibilities including an inflammatory process, as well as infection or stroke also need to be entertained. 2. History of dermatomyositis, on immunosuppressant therapy. 3. Hypertension, which is well regulated. PLAN: The patient will be continued with Decadron for the vasogenic edema and Keppra for seizure prophylaxis, along with Protonix for gastrointestinal stress ulcer prophylaxis. A CT of the chest, abdomen and pelvis will be obtained to rule out any systemic masses or source for metastasis. Very lengthy discussion with the patient and his , and they would like to pursue further medical care locally in [place]. I also discussed the findings with their [id number] who is an ENT surgeon in [facility] and he also wants the patient to fly back home in [place] for further management. Accordingly, we will make arrangements and he could possibly fly back tomorrow on a commercial flight and continue with Decadron and Keppra. They have made arrangements for neurosurgical and oncology local followup already. MD BRADLEY Betancourt/JENA , 12:48 PM , 01:55 PM
[2017-06-05] MEDS: DEXAMETHASONE 4 MG TAB PO SCH (17:47)
--- NOTE | 2017-06-05 19:24 | EKG ---
Date Performed: 06/04/2017 Time Performed: 18:44:51 PTAGE: 56 years EKG: Sinus rhythm NORMAL ECG NO PREVIOUS TRACING DOCTOR: Josias Gaytan Interpretating Date/Time 06/05/2017 19:23:32
[2017-06-05] MEDS: levETIRAcetam 500 MG TAB PO SCH (19:43)
[2017-06-05] MEDS ORDERED: IOHEXOL 350 MG/ML 10 ML VIAL (for RAD DIAG) IVCONTRAST ONE (20:29)
--- NOTE | 2017-06-05 20:35 | RADRPT ---
EXAM DATE/TIME: 06/05/2017 19:58 [facility] COMPARISON: CT BRAIN W/O CONTRAST, June 04, 2017, 19:05. INDICATIONS : Mass, evaluate for metastasis of brain mass. IV CONTRAST: 90 cc Omnipaque 350 (iohexol) IV ; Cumulative dose for multiple exams. RADIATION DOSE: 9.96 CTDIvol (mGy) ; Combined studies MEDICAL HISTORY : Hypertension. Gastroesophageal reflux disease. SURGICAL HISTORY : None. ENCOUNTER: Initial ACUITY: 1 day PAIN SCALE: 0/10 LOCATION: Bilateral chest TECHNIQUE: Volumetric scanning of the chest was performed. Using automated exposure control and adjustment of t he mA and/or kV according to patient size, radiation dose was kept as low as reasonably achievable to obtain optimal diagnostic quality images. DICOM format image data is available electronically for review and comparison. Follow-up recommendations for detected pulmonary nodules are based at a minimum on nodule size and pa tient risk factors according to Fleischner Society Guidelines. FINDINGS: LUNGS: There is no consolidation or pneumothorax. No concerning pulmonary nodule is visualized. PLEURA: There is no pleural thickening or pleural effusion. MEDIASTINUM: The heart and great vessels demonstrate no acute abnormality. There is no mediastinal or hilar lymph adenopathy. AXILLAE: Within normal limits. No lymphadenopathy. SKELETAL: Within normal limits for patient age. MISCELLANEOUS: The visualized upper abdominal organs demonstrate no acute abnormality. CONCLUSION: 1. Negative CT scan of the thorax. Xiang Staton MD on June 05, 2017 at 20:30 Board Certified Radiologist. This report was verified electronically.
--- NOTE | 2017-06-05 20:42 | RADRPT ---
EXAM DATE/TIME: 06/05/2017 19:58 [facility] COMPARISON: CT BRAIN W/O CONTRAST, June 04, 2017, 19:05. INDICATIONS : Mass, evaluate for metastasis of brain mass. IV CONTRAST: 90 cc Omnipaque 350 (iohexol) IV ; Cumulative dose for multiple exams. ORAL CONTRAST: Prescribed oral contrast ingested. RADIATION DOSE: 9.96 CTDIvol (mGy) ; Combined studies MEDICAL HISTORY : Hypertension. Gastroesophageal reflux disease. SURGICAL HISTORY : None. ENCOUNTER: Initial ACUITY: 1 day PAIN SCALE: 0/10 LOCATION: Bilateral abdomen TECHNIQUE: Volumetric scanning of the abdomen and pelvis was performed. Using automated exposure control and ad justment of the mA and/or kV according to patient size, radiation dose was kept as low as reasonably achievable to obtain optimal diagnostic quality images. DICOM format image data is available electro nically for review and comparison. FINDINGS: The limited portion of the lung base visualized is clear. The appearance of the liver, spleen, pancreas, adrenal glands and kidneys is within normal limits. The abdominal aorta is normal in caliber. There is no retroperitoneal lymphadenopathy. The visualized loops of small and large bowel in the upper abdomen are unremarkable. There is no free fluid within the pelvis. No iliac or inguinal adenopathy is seen. There are some sca ttered diverticuli within the sigmoid colon. No free air or free fluid is seen within the pelvis. No iliac or inguinal adenopathy is present. The visualized bony structures are intact. CONCLUSION: 1. Negative CT scan of the abdomen and pelvis. Xiang Staton MD on June 05, 2017 at 20:37 Board Certified Radiologist. This report was verified electronically.
[2017-06-05] MEDS ORDERED: ATORVASTATIN 20 MG TAB PO SCH (21:00)
[2017-06-06] VITALS: BP 115/59; PULSE 70; RESP 20; TEMP 97.9; O2SAT 94
[2017-06-06] MEDS: DEXAMETHASONE 4 MG TAB PO SCH ×3 (00:22→12:39)
[2017-06-06 04:00] VITALS: BP 132/73; PULSE 69; RESP 20; TEMP 97.6; O2SAT 96
[2017-06-06] MEDS: levETIRAcetam 500 MG TAB PO SCH (07:55)
[2017-06-06] MEDS: DOCUSATE SODIUM 50 MG/SENNA 8.6 MG TAB PO SCH (07:55)
[2017-06-06] MEDS: FOLIC ACID 1 MG TAB PO SCH (07:55)
[2017-06-06] MEDS: LISINOPRIL 5 MG TAB PO SCH (07:55)
[2017-06-06] MEDS: PANTOPRAZOLE SOD 40 MG DELAYED RELEASE TAB PO SCH (07:55)
[2017-06-06] MEDS: CARVEDILOL 12.5 MG TAB PO SCH (07:56)
[2017-06-06 07:57] VITALS: BP 133/64; PULSE 68; RESP 18; TEMP 98.1; O2SAT 97
[2017-06-06] MEDS: SODIUM CHLORIDE 0.9% FLUSH 10 ML FLUSH IV FLUSH SCH (07:57)
[2017-06-06 08:25] LABS: BICARBONATE 25.6 MEQ/L (21.0-32.0); CREATININE 0.73 MG/DL (0.60-1.30)
[2017-06-06] MEDS ORDERED: LEVE500 PO (09:50)
[2017-06-06] MEDS ORDERED: DEXA4TAB PO (09:50)
[2017-06-06 11:07] VITALS: PULSE 78
--- NOTE | 2017-06-06 11:28 | HHI.NSPN ---
(Myron Shell) History Chief Complaint: Mild right visual field deficit. (Myron Shell) Interval History This is a 56-year-old right-handed, gentleman who was transferred to [facility] facility after presenting to the [facility] emergency room last evening with complaints of worsening dizziness along with a headache and essentially twitching in the right eye with some spots in the right side of his vision, which he has had intermittently for the past 3 days. The patient is here visiting from [place] since his daughter is in the [employer] competition accompanied by his and is scheduled to fly back in 2 days. He has a chronic history of headaches which have been more pronounced. Yesterday, he also had nausea and vomiting. He has complained of dizziness over the past several days, but denies any other focal or uncontrollable seizure activity in the arms or legs or any loss of consciousness. The CT scan of the head obtained in the emergency room revealed a left occipital lobe vasogenic edema with mass effect and subsequent MRI scan of the brain has also been obtained, which reveals about a left occipital lobe enhancing mass with necrotic centers and several projections from this mass and possibly even 2 contiguous masses adjacent to each other. The total size of this is close to 3 cm. There is some surrounding vasogenic edema associated with this. The patient relates that ever since he was started on the Decadron and the Keppra last evening, his symptoms have improved. is at the bedside and relates that he was also having some confused conversation and he states that he was able to understand what she was saying, but not to express in a comprehensive way and respond to her questions, but this is also improving. 06/06/17: Pt states the incoordination and confusion has resolved. He states the spots in the right peripheral vision has resolved but felt maybe he had some visual deficit in the right peripheral field. He denies any headaches, nausea, vomiting or incoordination currently. He is planning to leave and fly home to [place]. (Myron Shell) Review of Systems General: Negative for: fever, chills, insomnia Respiratory: Negative for: shortness of breath, cough, sputum Cardiovascular: Negative for: chest pain Gastrointestinal: Negative for: nausea, vomitting, diarrhea, constipation ( Myron Shell) Exam Results Vital Signs Date Time Temp Pulse Resp B/P (MAP) Pulse Ox O2 Delivery O2 Flow Rate FiO2 06/06/17 11:07 78 06/06/17 07:57 98.1 18 133/64 (87) 97 06/04/17 21:49 Nasal Cannula 2.00 Intake and Output 06/06/17 06/06/17 06/06/17 07:59 15:59 23:59 Intake Total 500 ml Balance 500 ml (Myron Shell) Physical Examination General: Pt awake and alert in NAD. Eyes: Pupils 3mm bilaterally. Sclera anicteric. Resp: CTA bilaterally. Heart: NSR no murmurs Abd: Soft positive bs Skin: No cyanosis or erythema Muscle: Moves all 4 extremities with good strength. He ambulates without any assistive device. Neuro: Pt awake and alert. Follows commands well. Speech clear and appropriate. Pupils 3mm bilaterally, reactive bilaterally. (Myron Shell) Lab, Micro, Other Results Last Impressions Chest CT 06/05/17 0000 Signed Impressions: Service Date/Time: Monday, June 05, 2017 19:58 - CONCLUSION: 1. Negative CT scan of the thorax. Xiang Staton MD Abdomen/Pelvis CT 06/05/17 0000 Signed Impressions: Service Date/Time: Monday, June 05, 2017 19:58 - CONCLUSION: 1. Negative CT scan of the abdomen and pelvis. Xiang Staton MD Head CT [id number]/04/[id number] Signed Impressions: Service Date/Time: Sunday, June 04, 2017 19:05 - CONCLUSION: Chest X-Ray [id number] Signed Impressions: Service Date/Time: Sunday, June 04, 2017 18:52 - CONCLUSION: No acute disease. 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 MRI perfusion could be used to exclude avascular insult. Netsor Staton MD FACR Laboratory Tests Test 06/06/17 06:13 Blood Urea Nitrogen 14 MG/DL Creatinine 0.73 MG/DL Random Glucose 130 MG/DL Calcium Level 8.0 MG/DL Sodium Level 142 MEQ/L Potassium Level 3.8 MEQ/L Chloride Level 109 MEQ/L Carbon Dioxide Level 25.6 MEQ/L Anion Gap 7 MEQ/L Estimat Glomerular Filtration Rate 112 ML/MIN (Myron Shell) Medical Decision Making Impression and Plan 1. 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 The differential diagnosis obviously includes a neoplasm, either a primary brain mass or metastasis. Other possibilities including an inflammatory process, as well as infection or stroke also need to be entertained. 2. History of dermatomyositis, on immunosuppressant therapy. 3. Hypertension, which is well regulated. PLAN: Dr. Mccarty has approved discharge and follow up with local Neurosurgeon in [place] per pts request. He will continue with Decadron for the cerebral edema. He will continue with Keppra for seizure prophylaxis. Pt was advised of restrictions which include no driving. No strenuous activity. No pushing, pulling, lifting, or carrying more than 5 pounds. Patient and friends in room were appreciative of care provided. (Myron Shell) Attending Statement The exam, history, and the medical decision-making described in the above note were completed with the assistance of the mid-level provider. I reviewed and agree with the findings presented. I attest that I had a [id number] encounter with the patient on the same day, and personally performed and documented my assessment and findings in the medical record. Systemic workup was negative. Recommend the craniotomy for occipital lobe mass resection which they plan on undertaking in [place]. He will continue with the Decadron and Keppra. (Troy Mccarty MD) Myron Shell Jun 06, 2017 11:28 Troy Mccarty MD Jun 06, 2017 15:50
--- NOTE | 2017-06-06 12:03 | HHI.DS ---
Discharge Summary Admission Date Jun 04, 2017 at 19:59 Discharge Date: Jun 06, 2017 Admitting Diagnosis Left occipital brain mass with vasogenic edema, altered mental statu (1) Altered mental status ICD Code: R41.82 - Altered mental status, unspecified Diagnosis: Principal Status: Acute (2) Occipital mass ICD Code: R22.0 - Localized swelling, mass and lump, head Diagnosis: Principal Status: Acute Procedures None Brief History - From Admission Mr. Meza is a 56-year-old male with a history of dermatomyositis who presented to the [facility] emergency room for evaluation of altered mental status. The patient is from [place] and came down for 06/18/2017 to see his daughter (a college student at [employer]) in a local dance competition. He was found to have a left occipital brain mass on imaging and was transferred to [facility], [place], operated by [facility] for neurosurgical evaluation. The patient is seen in his hospital room. He states that he has been having some mild dizziness for the past couple of years and has been evaluated by his primary care physician in [place] for this. He says while he was at the dance competition 06/03/17, he started to have some confusion that he describes as "fogginess" along with dizziness and imbalance. He states his had to help him ambulate due to imbalance. He also was having a visual field disturbance in the periphery of his right eye -an area of black and also some vibrating of what he was able to see. He reports nausea with vomiting following his return back to the hotel. He currently states that he is feeling less confused though still a little "foggy". He reports he has been having headaches in the frontal area bilaterally that he describes as dull and a 2 out of 10 currently. He is able to provide a good medical history that is consistent with the medications he is taking and with the history we received from his . He denies any recent fever, chills, nausea, vomiting, chest pain , shortness of breath. CBC/BMP: 06/05/17 0511 06/06/17 0613 Significant Findings Laboratory Tests Test 06/04/17 18:45 06/04/17 21:20 06/05/17 05:11 06/05/17 05:14 Neutrophils (%) (Auto) 73.1 % (16.0-70.0) 83.0 % (16.0-70.0) Eosinophils (%) (Auto) 8.2 % (0.0-4.0) Lymphocytes # (Auto) 0.8 TH/MM3 (1.0-4.8) 0.6 TH/MM3 (1.0-4.8) Eosinophils # (Auto) 0.6 TH/MM3 (0-0.4) Blood Urea Nitrogen 19 MG/DL (7-18) Random Glucose 125 MG/DL (74-106) 144 MG/DL (74-106) Calcium Level 7.9 MG/DL (8.5-10.1) 8.1 MG/DL (8.5-10.1) Troponin I LESS THAN 0.02 NG/ML Thyroid Stimulating Hormone 3rd Gen 5.160 uIU/ML (0.358-3.740) Urine Ketones TRACE mg/dL (NEG) Urine Bacteria RARE /hpf (NONE) Urine Mucus MOD /lpf (OCC) Red Blood Count 4.41 MIL/MM3 (4.50-5.90) Test 06/06/17 06:13 Random Glucose 130 MG/DL (74-106) Calcium Level 8.0 MG/DL (8.5-10.1) Chloride Level 109 MEQ/L (98-107) Hospital Course Mr. Meng is a 56-year-old male. He is visiting from out of state and came to the hospital after having episodes of visual changes, confusion, dizziness, and dysphoria. Imaging of the brain shows some cerebral edema surrounding an occipital mass. This is a new finding for him. Further imaging of the thorax and abdomen shows no evidence of other masses to suggest metastatic disease. Neurosurgery has evaluated this patient. The patient wishes to have further neurosurgical workup and any surgeries performed in his home state. With treatments of dexamethasone and Keppra the patient has returned to baseline in regards to his mental status. He is medically stable at this time for discharge on dexamethasone and Keppra, with outpatient follow-up with neurosurgery. Medically clear for discharge to home today. Pt Condition on Discharge: Good Discharge Disposition: Discharge Home Discharge Time: <= 30 minutes Discharge Instructions DIET: Follow Instructions for: As Tolerated, No Restrictions Activities you can perform: Regular-No Restrictions Other Activity Instructions: Light activities Follow up Referrals: Neurosurgery - 1 Week PCP Follow-up - 2 Weeks New Medications: Dexamethasone (Dexamethasone) 4 Mg Tab 4 MG PO Q6HR for Inflammation, #60 TAB Levetiracetam (Keppra) 500 Mg Tab 500 MG PO Q12HR for Seizure Control, #60 TAB Continued Medications: Atorvastatin (Atorvastatin) 20 Mg Tab 20 MG PO HS for Cholesterol Management, #30 TAB 0 Refills Carvedilol (Carvedilol) 12.5 Mg Tab 12.5 MG PO BID, #60 TAB 0 Refills Folic Acid (Folic Acid) 0.4 Mg Tab 1 MG PO DAILY for Nutritional Supplement, TAB 0 Refills Lisinopril (Lisinopril) 5 Mg Tab 5 MG PO DAILY for Blood Pressure Management, #30 TAB 0 Refills Methotrexate (Methotrexate) 2.5 Mg Tab 2.5 MG PO Q7D, TAB 0 Refills Xiang Brownlee MD Jun 06, 2017 12:02
[2017-06-06 12:18] VITALS: BP 138/69; PULSE 77; RESP 18; TEMP 97.2; O2SAT 97
[2017-06-08] MEDS ORDERED: METHOTREXATE 2.5 MG TAB PO SCH (09:00)
== END 2017-06-06 13:42 | disposition home or self-care (01) | DRG 54 ==
LOC: PHED 18:37 → PHEDA 19:59 → N06A 23:45
PROVIDERS: ADMIT Hospitalist; ATTEND Hospitalist
DX: D43.0 Neoplasm of uncertain behavior of brain, supratentorial (principal); G93.6 Cerebral edema; I42.9 Cardiomyopathy, unspecified; M33.13 Other dermatomyositis without myopathy; I10 Essential (primary) hypertension; E78.5 Hyperlipidemia, unspecified; H53.40 Unspecified visual field defects
CPT/HCPCS: 70450; 70553; 71045; 71260; 74177; 80048; 80053; 80307; 81001; 82140; 82550; 83605; 84439; 84443; 84484; 85025; 85610; 85730; 87040; 93005; 96361; 96374; 96375; A9579; J1100; J1953; J2405; J7030; J8540; Q9963; Q9967